=== PATIENT | female | born 1945 | race African-American/Black ===

== ENCOUNTER 2024-05-30 13:21 | Inpatient (IN) | payer OTHER ==
[2024-05-30 15:59] LABS: BASO % 0.7 % (0-2.0); EOS % 1.5 % (0-4.5); HEMOGLOBIN 13.1 GM/dL (10.7-15.3); LYMPH % 33.5 % (8-40); MCH 35.3 pg (25.7-33.7); MCHC 32.1 g/dl (32.0-36.0); MEAN PLT VOLUME 9.1 fl (7.5-11.1); MONO % 13.9 % (3.8-10.2); NEUT % 50.4 % (42.8-82.8); PLATELET COUNT 120 10^3/uL (134-434); RBC 3.72 M/mm3 (3.60-5.2); RDW 15.3 % (11.6-15.6); WHITE BLOOD COUNT 3.8 K/mm3 (4.0-10.0)
[2024-05-30 16:34] LABS: ANISOCYTOSIS 1+; MACROCYTOSIS 1+
[2024-05-30 16:43] LABS: POTASSIUM 4.2 mmol/L (3.5-5.1)
[2024-05-30 16:45] LABS: CALCIUM 8.7 mg/dL (8.5-10.1)
[2024-05-30 16:46] LABS: MAGNESIUM 2.3 mg/dL (1.8-2.4)
[2024-05-30 16:49] LABS: CREATININE 2.5 mg/dL (0.55-1.3); PHOSPHOROUS 3.1 mg/dL (2.5-4.9)
[2024-05-30 16:50] LABS: BILIRUBIN,TOTAL 0.2 mg/dL (0.2-1)
[2024-05-30 16:51] LABS: TOT PROT 6.3 g/dl (6.4-8.2)
[2024-05-30] MEDS ORDERED: ALBUTEROL SO4 2.5/IPRATROPIUM 0.5 INH SOL 3 ML VIAL.NEB. NEB ONE (17:37)
[2024-05-30] MEDS: ALBUTEROL SO4 2.5/IPRATROPIUM 0.5 INH SOL 3 ML VIAL.NEB. NEB SCH ×2 (17:42→20:05)
[2024-05-30] MEDS ORDERED: methylPREDNISolone NA SUCC 40 MG/1 ML VIAL ONE (20:49)
[2024-05-30] MEDS ORDERED: amLODIPine BESYLATE 5 MG TABLET (FP) ONE (20:49)
[2024-05-30] MEDS: amLODIPine BESYLATE 5 MG TABLET (FP) PO SCH (20:51)
[2024-05-30] MEDS: methylPREDNISolone NA SUCC 40 MG/1 ML VIAL IVPB SCH (21:03)
[2024-05-30 21:41] LABS: POTASSIUM 4.2 mmol/L (3.5-5.1)
[2024-05-30 21:43] LABS: BLOOD UREA NITROGEN 36.1 mg/dL (7-18); CALCIUM 8.7 mg/dL (8.5-10.1)
[2024-05-30] MEDS: INSULIN ASPART SLIDING SCALE (NOVOLOG) 1 VIAL SQ SCH (21:46)
[2024-05-30] MEDS: HEPARIN NA (PORCINE) 5,000 UNITS/ML 1ML VIAL SQ SCH (21:47)
[2024-05-31] MEDS: REMDESIVIR 200 MG in SODIUM CHLORIDE 250 ML IVPB ONE (03:12)
[2024-05-31 07:06] LABS: BASO % 0.9 % (0-2.0); EOS % 0.6 % (0-4.5); HEMOGLOBIN 12.1 GM/dL (10.7-15.3); LYMPH % 37.6 % (8-40); MCH 35.4 pg (25.7-33.7); MCHC 32.7 g/dl (32.0-36.0); MEAN CELL VOLUME 108.5 fl (80-96); MEAN PLT VOLUME 10.1 fl (7.5-11.1); MONO % 10.1 % (3.8-10.2); NEUT % 50.8 % (42.8-82.8); PLATELET COUNT 121 10^3/uL (134-434); RBC 3.41 M/mm3 (3.60-5.2); RDW 14.6 % (11.6-15.6); WHITE BLOOD COUNT 3.3 K/mm3 (4.0-10.0)
[2024-05-31 07:25] LABS: POTASSIUM 4.2 mmol/L (3.5-5.1)
[2024-05-31 07:29] LABS: ALBUMIN 2.6 g/dl (3.4-5.0); BLOOD UREA NITROGEN 39.4 mg/dL (7-18); CALCIUM 8.7 mg/dL (8.5-10.1); MAGNESIUM 2.4 mg/dL (1.8-2.4)
[2024-05-31 07:33] LABS: CREATININE 2.9 mg/dL (0.55-1.3); PHOSPHOROUS 3.7 mg/dL (2.5-4.9)
[2024-05-31 07:34] LABS: BILIRUBIN,TOTAL 0.3 mg/dL (0.2-1); TOT PROT 5.5 g/dl (6.4-8.2)
[2024-05-31] MEDS ORDERED: DEXAMETHASONE SOD PHOSPHATE 4 MG/1 ML VIAL IVPB SCH (10:00)
[2024-05-31] MEDS: PANTOPRAZOLE 40 MG TABLET PO SCH (11:25)
[2024-05-31] MEDS: DEXAMETHASONE SOD PHOSPHATE 4 MG/1 ML VIAL IVPB ONE (11:26)
[2024-05-31] MEDS ORDERED: ALBUTEROL SO4 2.5/IPRATROPIUM 0.5 INH SOL 3 ML VIAL.NEB. NEB PRN (13:22)
[2024-05-31] MEDS ORDERED: SODIUM CHLORIDE 250 ML IV PRN (13:23)
[2024-05-31] MEDS ORDERED: ALBUTEROL SO4 HFA INHALER IH PRN (14:04)
[2024-05-31] MEDS: REMDESIVIR 100 MG in SODIUM CHLORIDE 250 ML IVPB SCH (20:51)
[2024-05-31] MEDS: ATORVASTATIN CA 40 MG TABLET (FP) PO SCH (21:40)
[2024-05-31] MEDS: CARVEDILOL 6.25 MG TABLET (FP) PO SCH (21:40)
[2024-06-01] MEDS: ANASTROZOLE 1 MG TABLET PO SCH (09:29)
[2024-06-01] MEDS: FLUoxetine HCL 10 MG CAPSULE PO SCH (09:29)
[2024-06-01] MEDS: FERROUS SO4 325 MG TABLET (FP) PO SCH (09:29)
[2024-06-01] MEDS: amLODIPine BESYLATE 10 MG TABLET (FP) PO SCH (09:29)
[2024-06-01] MEDS: methylPREDNISolone NA SUCC 40 MG/1 ML VIAL IVPUSH SCH (14:14)
[2024-06-01] MEDS: ALBUTEROL SO4 2.5/IPRATROPIUM 0.5 INH SOL 3 ML VIAL.NEB. NEB SCH (15:28)
[2024-06-01] MEDS: BUDESONIDE/FORMETEROL FUMARATE 160/4.5 mcg INHALER IH SCH (21:42)
[2024-06-02 06:45] LABS: BASO % 0.6 % (0-2.0); HEMATOCRIT 38.6 % (32.4-45.2); HEMOGLOBIN 12.5 GM/dL (10.7-15.3); LYMPH % 19.7 % (8-40); MCH 35.2 pg (25.7-33.7); MCHC 32.4 g/dl (32.0-36.0); MEAN CELL VOLUME 108.6 fl (80-96); MEAN PLT VOLUME 9.3 fl (7.5-11.1); MONO % 3.2 % (3.8-10.2); NEUT % 76.5 % (42.8-82.8); PLATELET COUNT 112 10^3/uL (134-434); RBC 3.55 M/mm3 (3.60-5.2); WHITE BLOOD COUNT 3.7 K/mm3 (4.0-10.0)
[2024-06-02 06:58] LABS: POTASSIUM 3.6 mmol/L (3.5-5.1)
[2024-06-02 07:03] LABS: BLOOD UREA NITROGEN 38.2 mg/dL (7-18); CALCIUM 8.6 mg/dL (8.5-10.1)
[2024-06-02 07:07] LABS: CREATININE 2.7 mg/dL (0.55-1.3)
[2024-06-02 08:43] LABS: EPI CELLS >36 /uL (0-25.1); HYALINE CASTS 4 /uL (0-3.1); URINE APPEARANCE TURBID; URINE BACTERIA >9,000 /uL (0-1359); URINE BILIRUBIN NEGATIVE (NEGATIVE); URINE COLOR YELLOW; URINE GLUCOSE (UA) NEGATIVE (NEGATIVE); URINE KETONE TRACE (NEGATIVE); URINE LEUK ESTERASE 1+ (NEGATIVE); URINE NITRITE NEGATIVE (NEGATIVE); URINE PROTEIN 4+ (NEGATIVE); URINE UROBILINOGEN 0.2 mg/dL (0.2-1.0); URINE WBC 293 /uL (0-25.8)
[2024-06-02 08:48] LABS: URINE RBC 37 /uL (0-23.9); YEAST NONE SEEN (NEGATIVE)
[2024-06-02 16:06] VITALS: BMI 18.9
[2024-06-03 07:19] LABS: HEMATOCRIT 36.5 % (32.4-45.2); HEMOGLOBIN 12.1 GM/dL (10.7-15.3); MCH 35.5 pg (25.7-33.7); MCHC 33.2 g/dl (32.0-36.0); MEAN CELL VOLUME 106.8 fl (80-96); MEAN PLT VOLUME 9.3 fl (7.5-11.1); PLATELET COUNT 119 10^3/uL (134-434); RBC 3.42 M/mm3 (3.60-5.2); RDW 14.9 % (11.6-15.6); WHITE BLOOD COUNT 4.2 K/mm3 (4.0-10.0)
[2024-06-03 07:43] LABS: POTASSIUM 3.7 mmol/L (3.5-5.1)
[2024-06-03 07:48] LABS: ALBUMIN 2.7 g/dl (3.4-5.0); BLOOD UREA NITROGEN 54.6 mg/dL (7-18); CALCIUM 8.6 mg/dL (8.5-10.1)
[2024-06-03 07:50] LABS: CREATININE 3.7 mg/dL (0.55-1.3)
[2024-06-03 07:52] LABS: BILIRUBIN,TOTAL 0.2 mg/dL (0.2-1); TOT PROT 5.5 g/dl (6.4-8.2)
[2024-06-04] MEDS ORDERED: SODIUM CHLORIDE 250 ML IV PRN (07:24)
[2024-06-04 08:53] LABS: HEMATOCRIT 39.4 % (32.4-45.2); HEMOGLOBIN 13.1 GM/dL (10.7-15.3); MCH 35.5 pg (25.7-33.7); MCHC 33.3 g/dl (32.0-36.0); MEAN CELL VOLUME 106.9 fl (80-96); MEAN PLT VOLUME 9.9 fl (7.5-11.1); PLATELET COUNT 124 10^3/uL (134-434); RBC 3.68 M/mm3 (3.60-5.2); WHITE BLOOD COUNT 5.6 K/mm3 (4.0-10.0)
[2024-06-04] MEDS: HEPARIN NA (PORCINE) 5,000 UNITS/ML 1ML VIAL IVPUSH ONE (09:00)
[2024-06-04 09:25] LABS: POTASSIUM 3.7 mmol/L (3.5-5.1)
[2024-06-04 09:29] LABS: ALBUMIN 2.6 g/dl (3.4-5.0); BLOOD UREA NITROGEN 77.8 mg/dL (7-18); CALCIUM 8.4 mg/dL (8.5-10.1)
[2024-06-04 09:33] LABS: CREATININE 4.3 mg/dL (0.55-1.3)
[2024-06-04 09:35] LABS: BILIRUBIN,TOTAL 0.4 mg/dL (0.2-1); TOT PROT 5.4 g/dl (6.4-8.2)
[2024-06-04] MEDS: methylPREDNISolone NA SUCC 40 MG/1 ML VIAL IVPUSH SCH (13:06)
[2024-06-04] MEDS: BISACODYL 10 MG SUPP.RECT PR ONE (16:53)
[2024-06-04] MEDS: BISACODYL 5 MG TABLET.DR (FP) PO ONE (16:54)
[2024-06-04 21:39] VITALS: BP 137/70; PULSE 71; RESP 18; TEMP 97.6
== END 2024-06-04 22:15 | disposition home or self-care (01) | DRG 177 ==
LOC: JER 13:21 → JERBED 17:26 → J4S 21:29 → OBSVTOIN 05-31 12:42
PROVIDERS: ADMIT Internal Medicine; ATTEND Internal Medicine
PROC: XW033E5 Introduction of Remdesivir Anti-infective into Peripheral Vein, Percutaneous Approach, New Technology Group 5 (ICD-10-PCS; principal; 2024-05-30)
PROC: 5A1D70Z Performance of Urinary Filtration, Intermittent, Less than 6 Hours Per Day (ICD-10-PCS; 2024-06-04)
DX: U07.1 COVID-19 (principal); N18.6 End stage renal disease; I12.0 Hypertensive chronic kidney disease with stage 5 chronic kidney disease or end stage renal disease; J44.1 Chronic obstructive pulmonary disease with (acute) exacerbation; R64 Cachexia; N39.0 Urinary tract infection, site not specified; Z68.1 Body mass index [BMI] 19.9 or less, adult; E11.22 Type 2 diabetes mellitus with diabetic chronic kidney disease; I16.0 Hypertensive urgency; E11.65 Type 2 diabetes mellitus with hyperglycemia; E78.5 Hyperlipidemia, unspecified; B96.20 Unspecified Escherichia coli [E. coli] as the cause of diseases classified elsewhere; R91.1 Solitary pulmonary nodule; K21.9 Gastro-esophageal reflux disease without esophagitis; Z99.2 Dependence on renal dialysis
CPT/HCPCS: 0241U-QW; 36415; 71045-TC-FY; 71250-TC; 80048; 80053; 81003; 82607; 82746; 82962; 83036; 83735; 84100; 84484; 85025; 85027; 86140; 86704; 86705; 86803; 87086; 87186; 87340; 87517; 87522; 93005; 93010; 94640; 97116-GP; 97161-GP; 99285-25; G0378; J0248; J1644

== ENCOUNTER 2024-07-27 12:43 | Inpatient (IN) | payer OTHER ==
[2024-07-27] MEDS ORDERED: ALBUTEROL SO4 2.5/IPRATROPIUM 0.5 INH SOL 3 ML VIAL.NEB. NEB ONE (14:32)
[2024-07-27] MEDS: ALBUTEROL SO4 2.5/IPRATROPIUM 0.5 INH SOL 3 ML VIAL.NEB. NEB ONE (14:46)
[2024-07-27] MEDS ORDERED: HALOPERIDOL LACTATE 5 MG/ML ONE (15:15)
[2024-07-27] MEDS: HALOPERIDOL LACTATE 5 MG/ML IM ONE (15:19)
[2024-07-27 16:11] LABS: BASO % 0.3 % (0-2.0); EOS % 0.2 % (0-4.5); HEMATOCRIT 40.1 % (32.4-45.2); HEMOGLOBIN 12.5 GM/dL (10.7-15.3); LYMPH % 15.6 % (8-40); MCHC 31.3 g/dl (32.0-36.0); MEAN CELL VOLUME 105.6 fl (80-96); MEAN PLT VOLUME 8.2 fl (7.5-11.1); NEUT % 69.9 % (42.8-82.8); PLATELET COUNT 82 10^3/uL (134-434); RBC 3.79 M/mm3 (3.60-5.2); RDW 16.4 % (11.6-15.6); WHITE BLOOD COUNT 8.4 K/mm3 (4.0-10.0)
[2024-07-27 16:37] LABS: POTASSIUM 4.7 mmol/L (3.5-5.1)
[2024-07-27 16:38] LABS: ALBUMIN 3.1 g/dl (3.4-5.0); CALCIUM 8.4 mg/dL (8.5-10.1)
[2024-07-27 16:40] LABS: BLOOD UREA NITROGEN 30.4 mg/dL (7-18); MAGNESIUM 2.1 mg/dL (1.8-2.4)
[2024-07-27 16:44] LABS: BILIRUBIN,TOTAL 0.4 mg/dL (0.2-1); TOT PROT 6.2 g/dl (6.4-8.2)
[2024-07-27 16:47] LABS: N-TERMINAL BNP 3167.9 pg/ml (5-450)
[2024-07-27 17:06] LABS: ANISOCYTOSIS 2+; MACROCYTOSIS 2+; OVALOCYTE 1+
[2024-07-27] MEDS ORDERED: ALBUTEROL SO4 0.083% IH SOL 2.5 MG/3 ML VIAL.NEB. NEB PRN (17:33)
[2024-07-27] MEDS: CARVEDILOL 6.25 MG TABLET (FP) PO SCH (21:32)
[2024-07-27] MEDS: ATORVASTATIN CA 40 MG TABLET (FP) PO SCH (21:32)
[2024-07-27] MEDS: BUDESONIDE/FORMETEROL FUMARATE 160/4.5 mcg INHALER IH SCH (23:04)
[2024-07-28 02:14] LABS: EPI CELLS 12 /uL (0-25.1); HYALINE CASTS 0 /uL (0-3.1); URINE APPEARANCE TURBID; URINE BACTERIA >9,000 /uL (0-1359); URINE BILIRUBIN NEGATIVE (NEGATIVE); URINE COLOR YELLOW; URINE GLUCOSE (UA) NEGATIVE (NEGATIVE); URINE KETONE TRACE (NEGATIVE); URINE LEUK ESTERASE 2+ (NEGATIVE); URINE NITRITE NEGATIVE (NEGATIVE); URINE PROTEIN 3+ (NEGATIVE); URINE UROBILINOGEN 0.2 mg/dL (0.2-1.0); URINE WBC 1139 /uL (0-25.8)
[2024-07-28 02:33] LABS: URINE RBC 138.3 /uL (0-23.9)
[2024-07-28] MEDS: FERROUS SO4 325 MG TABLET (FP) PO SCH (09:21)
[2024-07-28] MEDS: FUROSEMIDE 20 MG TABLET (FP) PO SCH (09:22)
[2024-07-28] MEDS: FLUoxetine HCL 20 MG CAPSULE PO SCH (09:22)
[2024-07-28] MEDS: amLODIPine BESYLATE 10 MG TABLET (FP) PO SCH (09:22)
[2024-07-28] MEDS: ANASTROZOLE 1 MG TABLET PO SCH (09:22)
[2024-07-28 09:57] LABS: HEMATOCRIT 32.5 % (32.4-45.2); HEMOGLOBIN 10.3 GM/dL (10.7-15.3); MCH 32.5 pg (25.7-33.7); MCHC 31.6 g/dl (32.0-36.0); MEAN CELL VOLUME 102.9 fl (80-96); MEAN PLT VOLUME 9.8 fl (7.5-11.1); PLATELET COUNT 134 10^3/uL (134-434); RBC 3.16 M/mm3 (3.60-5.2); RDW 15.3 % (11.6-15.6); WHITE BLOOD COUNT 5.3 K/mm3 (4.0-10.0)
[2024-07-28 09:59] LABS: POTASSIUM 3.6 mmol/L (3.5-5.1)
[2024-07-28 10:03] LABS: BLOOD UREA NITROGEN 41.5 mg/dL (7-18); CALCIUM 8.9 mg/dL (8.5-10.1)
[2024-07-28 10:04] LABS: MAGNESIUM 2.1 mg/dL (1.8-2.4)
[2024-07-28 10:07] LABS: CREATININE 3.5 mg/dL (0.55-1.3); PHOSPHOROUS 4.2 mg/dL (2.5-4.9)
[2024-07-28] MEDS: CEFTRIAXONE 1 G/50 ML PREMIX 50 ML IVPB SCH (15:14)
[2024-07-28] MEDS: VANCOMYCIN/WATER FOR INJ (PEG) 1,000 MG/200 ML BAG IVPB ONE (15:14)
[2024-07-29 10:58] LABS: BASO % 0.7 % (0-2.0); EOS % 1.9 % (0-4.5); HEMATOCRIT 35.5 % (32.4-45.2); HEMOGLOBIN 11.3 GM/dL (10.7-15.3); LYMPH % 26.3 % (8-40); MCH 32.7 pg (25.7-33.7); MCHC 31.8 g/dl (32.0-36.0); MEAN PLT VOLUME 10.1 fl (7.5-11.1); MONO % 12.6 % (3.8-10.2); NEUT % 58.5 % (42.8-82.8); RBC 3.45 M/mm3 (3.60-5.2); RDW 15.5 % (11.6-15.6); WHITE BLOOD COUNT 5.8 K/mm3 (4.0-10.0)
[2024-07-29 10:59] LABS: PLATELET COUNT 134 10^3/uL (134-434)
[2024-07-29] MEDS: ALBUTEROL SO4 2.5/IPRATROPIUM 0.5 INH SOL 3 ML VIAL.NEB. NEB SCH (11:45)
[2024-07-29] MEDS: methylPREDNISolone NA SUCC 40 MG/1 ML VIAL IVPUSH SCH (12:27)
[2024-07-29 14:03] LABS: ALBUMIN 2.8 g/dl (3.4-5.0); BILIRUBIN,TOTAL 0.4 mg/dL (0.2-1); BLOOD UREA NITROGEN 44.9 mg/dL (7-18); CALCIUM 8.5 mg/dL (8.5-10.1); CREATININE 3.9 mg/dL (0.55-1.3); POTASSIUM 3.9 mmol/L (3.5-5.1); TOT PROT 5.7 g/dl (6.4-8.2)
[2024-07-29] MEDS ORDERED: SODIUM CHLORIDE 250 ML IV PRN (15:19)
[2024-07-29] MEDS: HALOPERIDOL LACTATE 5 MG/ML IM ONE (16:00)
[2024-07-29] MEDS: EPOETIN ALFA-EPBX 10,000 UNIT/ML VIAL SQ ONE (16:19)
[2024-07-29] MEDS: HEPARIN NA (PORCINE) 5,000 UNITS/ML 1ML VIAL SQ SCH (21:19)
[2024-07-30] MEDS ORDERED: predniSONE 20 MG TABLET (UD) PO SCH (10:21)
[2024-07-30 11:10] VITALS: BMI 18.6
[2024-07-30] MEDS: methylPREDNISolone NA SUCC 40 MG/1 ML VIAL IVPUSH SCH (14:33)
[2024-07-30] MEDS ORDERED: SODIUM CHLORIDE 250 ML IV PRN (15:54)
[2024-07-31] MEDS: predniSONE 20 MG TABLET (UD) PO ONE (04:32)
[2024-07-31] MEDS: predniSONE 20 MG TABLET (UD) PO SCH (09:21)
[2024-07-31] MEDS: VITAMIN B COMP W-C 1 EA TABLET (NEPHRO-VITE) PO SCH (09:21)
[2024-07-31 09:34] LABS: BASO % 0.7 % (0-2.0); EOS % 0.1 % (0-4.5); HEMATOCRIT 39.7 % (32.4-45.2); HEMOGLOBIN 12.5 GM/dL (10.7-15.3); MCH 32.3 pg (25.7-33.7); MCHC 31.5 g/dl (32.0-36.0); MEAN CELL VOLUME 102.5 fl (80-96); MEAN PLT VOLUME 8.7 fl (7.5-11.1); MONO % 1.5 % (3.8-10.2); NEUT % 87.7 % (42.8-82.8); PLATELET COUNT 155 10^3/uL (134-434); RBC 3.88 M/mm3 (3.60-5.2); RDW 15.6 % (11.6-15.6)
[2024-07-31 09:47] LABS: POTASSIUM 3.8 mmol/L (3.5-5.1)
[2024-07-31 10:00] LABS: ALBUMIN 3.1 g/dl (3.4-5.0); BLOOD UREA NITROGEN 34.6 mg/dL (7-18); CALCIUM 9.5 mg/dL (8.5-10.1); TOT PROT 6.1 g/dl (6.4-8.2)
[2024-07-31] MEDS ORDERED: predniSONE 20 MG TABLET (UD) PO SCH (10:00)
[2024-07-31 10:03] LABS: BILIRUBIN,TOTAL 0.4 mg/dL (0.2-1); CREATININE 3.1 mg/dL (0.55-1.3)
[2024-07-31] MEDS: INSULIN ASPART SLIDING SCALE (NOVOLOG) 1 VIAL SQ SCH (17:22)
[2024-08-01 11:27] VITALS: BP 127/59; PULSE 77; RESP 19; TEMP 98.6
== END 2024-08-01 11:13 | DRG 689 ==
LOC: JER 12:43 → JERBED 17:16 → UNDOADMIN 17:16 → JERBED 17:33 → INTOOBSV 17:33 → J5S 18:55 → OBSVTOIN 07-28 13:22
PROVIDERS: ADMIT Student in an Organized Health Care Education/Training Program; ATTEND Internal Medicine
PROC: 5A1D70Z Performance of Urinary Filtration, Intermittent, Less than 6 Hours Per Day (ICD-10-PCS; principal; 2024-07-31)
DX: N39.0 Urinary tract infection, site not specified (principal); E43 Unspecified severe protein-calorie malnutrition; N18.6 End stage renal disease; G93.41 Metabolic encephalopathy; J44.1 Chronic obstructive pulmonary disease with (acute) exacerbation; I50.32 Chronic diastolic (congestive) heart failure; I13.2 Hypertensive heart and chronic kidney disease with heart failure and with stage 5 chronic kidney disease, or end stage renal disease; Z68.1 Body mass index [BMI] 19.9 or less, adult; F03.90 Unspecified dementia, unspecified severity, without behavioral disturbance, psychotic disturbance, mood disturbance, and anxiety; Z99.2 Dependence on renal dialysis; E78.5 Hyperlipidemia, unspecified
CPT/HCPCS: 0241U-QW; 36415; 70450-TC; 71045-TC-FY; 80048; 80053; 81003; 82962; 83735; 83880; 84100; 85025; 85027; 86803; 87086; 87186; 87340; 87522; 93005; 93010; 94640; 97116-GP; 97161-GP; 99285-25; G0378; J1644; Q5106